=== PATIENT | male | born 1955 | race Caucasian/White ===

== ENCOUNTER 2019-06-12 17:28 | Inpatient (IN) | payer BC ==
[~2019-06-12] VITALS: Ht 172.7 cm; Wt 101.9 kg
[2019-06-12 17:30] VITALS: BP 95/55
[2019-06-12 18:14] LABS: ABSOLUTE NEUTROPHILS 13.3 thou/uL (1.4-8.2); BASOPHILS 0.4 % (0.0-2.0); EOSINOPHILS 0.2 % (0.0-3.0); HEMATOCRIT 37.2 % (42.0-52.0); HEMOGLOBIN 12.6 gm/dL (14.0-18.0); MCH 31.7 pg (26.0-34.0); MCHC 33.8 g/dL (28.0-37.0); MCV 93.7 fL (80.0-100.0); MONOCYTES 6.4 % (1.0-8.0); PLATELET COUNT 278 thou/uL (150-400); RBC 3.97 mil/uL (4.50-6.00); RDW 12.8 % (10.5-14.5); WBC 17.5 thou/uL (4.0-11.0)
[2019-06-12 18:33] LABS: APTT 23.4 Seconds (24.5-32.8); INR 1.1
[2019-06-12 18:36] LABS: CALCIUM 8.9 mg/dL (8.5-10.1); CREATININE 0.9 mg/dL (0.7-1.3); POTASSIUM 4.3 mmol/L (3.5-5.1)
[2019-06-12] MEDS ORDERED: TYLENOL PM EX-1 EACH PO (19:52)
[2019-06-12 19:58] VITALS: BP 111/55
[2019-06-13 01:49] LABS: HEMATOCRIT 31.1 % (42.0-52.0)
[2019-06-13 01:52] LABS: HEMOGLOBIN 10.6 gm/dL (14.0-18.0)
[2019-06-13 02:45] LABS: ALBUMIN 3.1 g/dL (3.4-5.0); DIRECT BILIRUBIN 0.1 mg/dL (<0.1-0.3); TOTAL BILIRUBIN 0.5 mg/dL (<0.1-1.0); TOTAL PROTEIN 5.7 g/dL (6.4-8.2)
[2019-06-13 04:56] VITALS: BP 104/54
[2019-06-13 09:23] VITALS: BP 119/44
--- NOTE | 2019-06-13 17:41 | NUR ---
ASSUMED CARE AT 0700, SHIFT ASSESSMENT DONE, NPO SINCE LAST NIGHT. GI CONSULT, SAW THE PT THIS AM. WENT FOR A EGD, SOME GASTRIC ULCERS SEEN, STARTED ON A SOFT DIET, TOLERATING WELL. ON A PROTONIX DRIP. UP AD PILLO. WILL CONTINUE TO ASSESS AND ASSIST WITH ADLs NEEDED.
[2019-06-13 19:47] VITALS: BP 141/64
[2019-06-14 03:54] LABS: HEMOGLOBIN 9.3 gm/dL (14.0-18.0); MCH 32.6 pg (26.0-34.0); MCHC 34.6 g/dL (28.0-37.0); MCV 94.1 fL (80.0-100.0); RBC 2.87 mil/uL (4.50-6.00); RDW 12.9 % (10.5-14.5); WBC 8.1 thou/uL (4.0-11.0)
[2019-06-14 05:00] VITALS: BP 124/69
[2019-06-14 08:24] VITALS: BP 155/69
--- NOTE | 2019-06-14 08:56 | NUR ---
PT RESTING ON AND OFF THRU THE NOC, FLUIDS AND PROTONIX GTT INFUSING THRU L AC, NO C/O PAIN, VSS, REPORT GIVEN TO NEXT SHIFT TO CON'T WITH PPOC.
--- NOTE | 2019-06-14 09:09 | EKG ---
[place] [address] [facility] [address] [place] [address] ELECTROCARDIOGRAM REPORT Name: VICK MCINTOSH JR Room #: 205-P ADM IN M.R.#: [id number] Admission: 06/12/19 Attend Phys: Regis Miller MD Discharge: Date of : 59 Report #: [id number] THIS REPORT FOR: //name// [facility] ED Test Date: 2019-06-12 Test Time: 17:48:07 Pat Name: VICK MCINTOSH Department: Room: 205 Gender: M Platform Supervisor: JORGE : 1955 Requested By: Milad Gamez Order Number: [id number] MD: Portillo Cortez Measurements Intervals [place] Rate: 63 P: 17 SC: 162 QRS: -14 QRSD: 158 T: 151 QT: 453 QTc: 464 Interpretive Statements Sinus rhythm Left bundle branch block No previous ECG available for comparison Electronically Signed On 06-14-2019 9:08:48 CDT by Portillo Cortez [email or web address] <ELECTRONICALLY SIGNED> By: Portillo Cortez MD, [facility] 06/14/19 0908 1748 1748 Portillo Cortez MD, FACC /EPI
--- NOTE | 2019-06-14 12:24 | NUR ---
ASSUMED CARE AT 0700, SHIFT ASSESSMENT DONE, MEDS GIVEN, VSS. WAITING FOR HGB TO CHECKED AT 1300. IF THAT IS STABLE, THEN PT WILL BE ABLE TO DISCHARGE LATER ON IN THE DAY. WILL CONTINUE TO ASSESS AND ASSIST WITH ADLs NEEDED.
[2019-06-14 12:37] VITALS: BP 145/65
[2019-06-14 12:52] LABS: HEMATOCRIT 29.2 % (42.0-52.0); HEMOGLOBIN 9.9 gm/dL (14.0-18.0)
[2019-06-14] MEDS ORDERED: CARAFATE 1 GM TA1 G1 PO (14:53)
[2019-06-14] MEDS ORDERED: PROTONIX40 M1 PO (14:54)
[2019-06-14 15:31] VITALS: BP 145/65
[2019-06-15 07:07] LABS: GLYCOHEMOGLOBIN (HGB A1C) 5.3 % (4.8-5.6)
--- NOTE | 2019-06-15 14:06 | PATH ---
[facility] [address] [place] [address] PATHOLOGY RPT PROCEDURE Name: VICK MCINTOSH Room #: 205-P DIS IN M.R.#: [id number] Admission: 06/12/19 Date of : 59 Discharge: 06/14/19 Report #: [id number] Path Case #: [id number] [facility] Accession Number: [id number] . 01 Material submitted: . stomach - GASTRIC BX . 01 Clinical history: . GI bleed, coffee-ground emesis Rule out H. pylori . 02 Diagnosis: Gastric mucosa, gastric to rule out H. pylori, endoscopic biopsy: - Helicobacter pylori induced moderate active gastritis. - Negative for intestinal metaplasia, atrophy or dysplasia. - Moderate number of Helicobacter pylori organisms present on the properly controlled immunohistochemical stain. 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 02 Electronically signed: . Cathy Welch MD, Pathologist NPI- [id number] . 01 Gross description: . The specimen is received in formalin, labeled "Vick Mcintosh Jr, gastric BX" and consists of multiple fragments of lovell tissue measuring 0.9 x 0.8 x 0.2 cm in aggregate which are entirely submitted in A1. (SDY; 06/14/2019) SYU/SYU 06/14/2019 1042 Local . 02 Pathologist provided ICD-10: K29.60, B96.81 . 02 CPT . 782013, R48221 Specimen Comment: A courtesy copy of this report has been sent to Specimen Comment: [phone], . Specimen Comment: Report sent to / DR CHANDLER Performed at: [address], [place] [id number] MD Jose Carlos Villatoro MD Phone: [phone] Performed at: [address] [id number] MD Cathy Welch MD Phone: [phone]
--- NOTE | 2019-06-16 08:11 | P ---
[facility] [place] [address] PROCEDURE REPORT Name: VICK MCINTOSH JR Room #: 205-P [facility] IN M.R.#: [id number] Admission: 06/12/19 Attend Phys: Regis Miller MD Discharge: 06/14/19 Date of : 59 Report #: [id number] THIS REPORT FOR: //name// CC: FAM unknown Vick Ferreira MD DATE OF SERVICE: 06/12/2019 PROCEDURE PERFORMED: Upper endoscopy with bleeding control and biopsies. HISTORY OF PRESENT ILLNESS: The patient is a 63-year-old male with recent coffee-ground emesis, melanotic stools, was taking NSAIDs on a regular basis, had a drop in his hemoglobin last night, was hypertensive on admission. Plan is for upper endoscopy. DESCRIPTION OF PROCEDURE: The risks and benefits of the procedure were explained to the patient, those risks including but not limited to bleeding, perforation and the risk of sedation. He understood these risks and gave informed consent. Sedation was given using propofol per Anesthesia. Next, using a standard Olympus upper endoscope, the scope was placed in the patient's mouth and advanced under direct vision through the esophagus, stomach and into the second portion of the duodenum. The upper and mid esophagus was normal. At the GE junction, grade B erosive esophagitis was noted. No evidence of bleeding. The gastric mucosa was normal in the fundus and the upper body; however, in the antrum, the patient had 2 clean white based ulcers, the larger was 1.2 cm in size, the smaller was 5 mm in size. No evidence of active bleeding. The pylorus was normal and patent. In the duodenal bulb, there were 2 ulcers, one with active small amount of bleeding, bright red blood. I treated this with a 7-Swedish bipolar cautery. No further bleeding was noted. The other, no evidence of bleeding, no visible vessel. There was a large amount of blood, only a very small amount of bright red blood was noted. The second portion of the duodenum was normal. The scope was then brought back up into the patient's stomach and biopsies were obtained to rule out the possibility of H. pylori. The scope was then withdrawn and the procedure terminated. The patient tolerated the procedure well. IMPRESSION: 1. Gastric ulcers. 2. Grade B erosive esophagitis. 3. Actively bleeding duodenal ulcer, status post cauterization. RECOMMENDATIONS: 1. Observe the patient post-cautery procedure. 2. Continue PPI drip overnight. [address] [address] PROCEDURE REPORT Name: VICK MCINTOSH Room #: 205-P [facility] IN .R.#: [id number] Admission: 06/12/19 Attend Phys: Regis Miller MD Discharge: 06/14/19 Date of : 59 Report #: [id number] 3. We will add Carafate at this time. 4. Await biopsy results. 5. Continue to monitor hemoglobin. Thank you for allowing me to participate in his care. <ELECTRONICALLY SIGNED> By: Christiano Sprague MD 06/16/19 0811 1249 1539 Christiano Sprague MD /nt
--- NOTE | 2019-06-16 08:11 | HC ---
[facility] [place] [address] CONSULTATION Name: VICK MCINTOSH JR Room #: 205-P [facility] IN M.R.#: [id number] Admission: 06/12/19 Attend Phys: Regis Miller MD Discharge: 06/14/19 Date of : 59 Report #: [id number] THIS REPORT FOR: //name// CC: FAM unknown Vick Ferreira MD DATE OF SERVICE: 06/12/2019 HISTORY OF PRESENT ILLNESS: The patient is a 63-year-old male, who was at work on Friday, began feeling nauseated and somewhat weak, had an episode of coffee-ground emesis. No previous history of GI bleed, although in college, he reportedly had a history of a duodenal ulcer, but no endoscopy at that time. It appears this was a clinical diagnosis. The patient does take NSAIDs on a regular basis. The patient was transferred to the hospital by ambulance. His hemoglobin on admission was 12.6, today is 10.6. He denies any abdominal pain. He did have a melanotic stool last evening after admission. He has been n.p.o. at this time. Currently, he denies any chest pain or shortness of breath. No previous history of EGD or colonoscopy. He denies any fevers or chills. PAST MEDICAL HISTORY: Unremarkable. ALLERGIES: No known drug allergies. SOCIAL HISTORY: Denies any tobacco use. He consumes approximately 3-4 units of alcohol on a daily basis. MEDICATIONS AT HOME: The patient was taking naproxen several on a daily basis. FAMILY HISTORY: Negative for colon cancer or inflammatory bowel disease. REVIEW OF SYSTEMS: As per HPI. PHYSICAL EXAMINATION: VITAL SIGNS: Temperature is 98.8, pulse 61, blood pressure 119/44, respiratory rate is 18. GENERAL: He is alert and oriented x 3, in no acute distress. HEENT: Sclerae nonicteric. Oropharynx clear. NECK: Supple, without lymphadenopathy. CARDIOVASCULAR: Regular rate and rhythm. CHEST: Clear to auscultation bilaterally. ABDOMEN: Soft. He is nontender, nondistended, normoactive bowel sounds. EXTREMITIES: No cyanosis, clubbing, or edema. LABORATORY DATA: Sodium 139, potassium 4.3, chloride 102, bicarbonate 26, BUN [address] [address] CONSULTATION Name: VICK MCINTOSH Room #: 205-P [facility] IN .R.#: [id number] Admission: 06/12/19 Attend Phys: Regis Miller MD Discharge: 06/14/19 Date of : 59 Report #: [id number], creatinine 0.9, glucose 173, AST 17, total bili 0.5, alk phos 45, ALT is 13, total protein 5.7, albumin 3.1. INR 1.1. WBC is 17.5, hemoglobin 10.6, MCV 93.7, platelet count is 278. Troponin less than 0.06. Chest x-ray: Low lung volumes, no acute pulmonary process. ASSESSMENT AND PLAN: Upper gastrointestinal bleed. The patient presented with coffee-ground emesis and had a melanotic stool last evening. He has had a drop in his hemoglobin. He has been taking NSAIDs on a regular basis. We would recommend upper endoscopy today for further evaluation to rule out peptic ulcer disease. I agree with PPI therapy, which has already been started. We will make further recommendations after endoscopy. Thank you for allowing me to participate in his care. <ELECTRONICALLY SIGNED> By: Christiano Sprague MD 06/16/19 0811 1246 1518 Christiano Sprague MD /nt
== END 2019-06-14 16:06 | disposition home or self-care (01) | DRG 379 ==
LOC: ER 17:28 → EROBS 19:23 → 2N 19:23 → EROBS 20:20 → 2N 20:30
PROVIDERS: Emergency Medicine; Nurse Practitioner; Nurse Practitioner Acute Care; Specialist; ADMIT Internal Medicine
DX: K26.4 Chronic or unspecified duodenal ulcer with hemorrhage (principal); I95.9 Hypotension, unspecified; R73.9 Hyperglycemia, unspecified; K20.9 Esophagitis, unspecified; K25.7 Chronic gastric ulcer without hemorrhage or perforation; Z79.1 Long term (current) use of non-steroidal anti-inflammatories (NSAID); Z72.89 Other problems related to lifestyle
CPT/HCPCS: 10081; 62110; 62900